=== PATIENT | female | born 1970 | race Caucasian/White ===

== ENCOUNTER 2018-11-02 11:09 | Emergency (ER) | payer OTHER ==
[~2018-11-02] VITALS: Ht 167.6 cm; Wt 52.2 kg
[2018-11-02] MEDS ORDERED: SODIUM CHLORIDE 0.9% 1000ML 1,000 ML IV STA (11:23)
[2018-11-02] MEDS ORDERED: TRILEPTAL300 MG PO (11:26)
[2018-11-02] MEDS ORDERED: SEROQUEL25 MG PO (11:26)
[2018-11-02] MEDS ORDERED: REMERON15 MG PO (11:27)
[2018-11-02] MEDS ORDERED: SUBOXONE 8 MG-1 EAC2 PO (11:27)
[2018-11-02] MEDS ORDERED: BENZTROPINE MESY2 MG PO (11:28)
[2018-11-02] MEDS ORDERED: CLONIDINE HCL0.1 MG PO (11:28)
[2018-11-02] MEDS ORDERED: LITHIUM CARBON450 MG PO (11:28)
[2018-11-02 11:42] LABS: BASOPHILS # (AUTO) 0.1 (0.0-0.1); BASOPHILS % 0.3 % (0.0-1.0); HEMATOCRIT 46.1 % (34.2-44.1); HEMOGLOBIN 16.2 g/dL (12.0-16.0); LYMPHOCYTES # (AUTO) 1.8 (1.0-3.2); LYMPHOCYTES % 9.7 % (18.0-39.1); MEAN CORPUSCULAR HEMOGLOBIN 30.6 pg (28-32); MEAN CORPUSCULAR HGB CONC 35.1 g/dL (31-35); MONOCYTES # (AUTO) 1.5 (0.2-0.8); MONOCYTES % 7.9 % (4.4-11.3); NEUTROPHILS # (AUTO) 15.3 (2.1-6.9); NEUTROPHILS % 81.5 % (38.7-80.0); PLATELET COUNT 318 x10e3/uL (140-360); RED CELL DISTRIBUTION WIDTH 13.5 % (11.7-14.4)
[2018-11-02 11:51] LABS: CLARITY,URINE SL CLOUDY (CLEAR); COLOR,URINE YELLOW (YELLOW); LEUKOCYTE ESTERASE ,URINE NEGATIVE (NEGATIVE)
[2018-11-02 11:52] LABS: BILIRUBIN,URINE NEGATIVE (NEGATIVE); KETONES,URINE NEGATIVE (NEGATIVE); NITRITE,URINE NEGATIVE (NEGATIVE); PROTEIN,URINE DIPSTICK 2+ (NEGATIVE); URINE UROBILINOGEN 0.2 mg/dL (0.2 - 1)
[2018-11-02 11:53] LABS: BACTERIA,URINE FEW /HPF; EPITHELIAL CELLS,URINE FEW /LPF; PREGNANCY TEST, URINE NEGATIVE (NEGATIVE)
[2018-11-02] MEDS ORDERED: ONDANSETRON HCL INJ 2MG/ML 2ML 2 MG/ML VIAL IV ONE (12:00)
[2018-11-02 12:17] LABS: ALANINE AMINOTRANSFERASE 24 IU/L (0-55); ALBUMIN 4.2 g/dL (3.5-5.0); ALBUMIN/GLOBULIN RATIO 1.4 (0.8-2.0); ALKALINE PHOSPHATASE 81 IU/L (40-150); AMYLASE 84 U/L (25-125); ANION GAP 17.3 mmol/L (8-16); BLOOD UREA NITROGEN 12 mg/dL (7-26); BUN/CREATININE RATIO 15 (6-25); CALCIUM 10.1 mg/dL (8.4-10.2); CARBON DIOXIDE 22 mmol/L (22-29); CHLORIDE 103 mmol/L (98-107); CREATININE, SERUM 0.78 mg/dL (0.57-1.11); EST GLOMERULAR FILTRATION RATE > 60 ML/MIN (60-); GLUCOSE 143 mg/dL (74-118); LIPASE 18 U/L (8-78); MAGNESIUM 2.3 MG/DL (1.3-2.1); POTASSIUM 3.3 mmol/L (3.5-5.1); SODIUM 139 mmol/L (136-145)
--- NOTE | 2018-11-02 12:37 | NUR ---
PATIENT RESTING QUIETLY AT THIS TIME; APPEARS IN NO DISTRESS
[2018-11-02] MEDS ORDERED: KETOROLAC TROMETHAMINE 30 MG/ML VIAL IV ONE (13:15)
[2018-11-02] MEDS ORDERED: ONDANSETRON HCL INJ 2MG/ML 2ML 2 MG/ML VIAL IV STA (13:34)
[2018-11-02] MEDS ORDERED: HYDROMORPHONE 1MG/1ML INJ IV ONE (14:00)
--- NOTE | 2018-11-02 14:00 | NUR ---
PATIENT TO CT AT THIS TIME
[2018-11-02] MEDS ORDERED: SODIUM CHLORIDE 0.9% 50ML 50 ML ONE (14:33)
[2018-11-02] MEDS ORDERED: IOPAMIDOL 370 MG/ML 200 ML INFUS..BTL INJ ONE (14:33)
--- NOTE | 2018-11-02 14:52 | Diagnostic Imaging Report ---
ADDENDUM #1 Subcentimeter air cyst in the right lower lobe. Signed by: Dr. Michael Luna MD on 11/02/2018 4:[address] Abdomen And Pelvis with Intravenous Contrast INDICATION: Nausea, vomiting ^upper abdominal pain, n/v/d, rule out colitis ^[id number] ^[id number] TECHNIQUE: Thin collimation axial images obtained from the diaphragm to the level of the pubic symphysis following the uneventful administration of 100 cc of low osmolar, nonionic intravenous contrast. Dose reduction techniques used: Automated exposure control, adjustment of the mAs and/or kVp according to patient size, standardized low-dose protocol, and/or iterative reconstruction technique. RADIATION DOSE: Total DLP: 170.33 mGy*cm Estimated effective dose: (DLP x 0.015 x size factor) mSv CTDIvol has been reviewed. It is below the limits set by the Radiation Protocol Committee (RPC). COMPARISON: None. ABDOMEN FINDINGS: Lung Bases: Clear. The visualized portions of the mediastinum are normal.. Liver: Mildly decreased attenuation suggestive of steatosis. No evidence for mass. Gallbladder: Absent. No biliary ductal dilatation. Pancreas: Normal attenuation without mass or ductal dilatation. Divisum morphology of the pancreas duct. Spleen: Normal in size. No evidence of mass. Adrenal Glands: No evidence for mass. Kidneys: Right: Normal enhancement. No soft tissue mass. No hydronephrosis. Left: Normal enhancement. No soft tissue mass. No hydronephrosis. Lymph Nodes: No enlarged abdominal or retroperitoneal lymph nodes.. Aorta: Normal in diameter with scattered calcifications PELVIS FINDINGS: Bowel: Stomach: Normal. Small Bowel: Normal in caliber with normal wall thickness. Large Bowel: Normal in caliber with normal wall thickness. Appendix: Normal appendix. Bladder: Normal. The uterus is absent. No adnexal mass. Peritoneum/or peritoneum: No free fluid or fluid collection. Bones: No focal osseous lesions. IMPRESSION: 1. No evidence for bowel obstruction or inflammation. Normal appendix. 2. Status post cholecystectomy and hysterectomy. 3. Pancreas divisum. 4. Steatosis. Signed by: Dr. Michael Luna MD on 11/02/2018 2:49 PM
--- NOTE | 2018-11-02 16:07 | Diagnostic Imaging Report ---
EXAMINATION: CHEST SINGLE (PORTABLE) INDICATION: ^cough, rule out pneumonia ^[id number] ^1515 COMPARISON: None FINDINGS: PA and lateral views TUBES and LINES: None. LUNGS: Lungs are well inflated. There is no evidence of pneumonia or pulmonary edema. PLEURA: Trace blunting of the right lateral costophrenic angle. No pneumothorax. HEART AND MEDIASTINUM: The cardiomediastinal silhouette is unremarkable.. BONES AND SOFT TISSUES: No focal osseous lesions. Soft tissues are unremarkable. UPPER ABDOMEN: No free air under the diaphragm. IMPRESSION: Trace blunting of the right lateral costophrenic angle may be the result of developing pleural effusion. No infiltrates. Signed by: Dr. Michael Luna MD on 11/02/2018 4:07 PM
[2018-11-02] MEDS ORDERED: CEFTRIAXONE SOD 1 GM/NS 50 ML 50 ML IV ONE (16:45)
[2018-11-02] MEDS ORDERED: CEFDINIR300 MG PO (16:53)
[2018-11-02] MEDS ORDERED: ZOFRAN4 MG SL (16:53)
[2018-11-02 18:00] VITALS: BP 166/75
== END 2018-11-02 18:00 | disposition home or self-care (01) ==
LOC: ER 11:09
DX: R11.2 Nausea with vomiting, unspecified (principal); R10.13 Epigastric pain; R19.7 Diarrhea, unspecified; N39.0 Urinary tract infection, site not specified
CPT/HCPCS: 36415; 71045; 74177; 80053; 81001; 81025; 82150; 83690; 83735; 85025; 99284; J0696; J1170; J1885; J2405; J7030; Q9967